=== PATIENT | female | born 1960 | race Caucasian/White ===

== ENCOUNTER → 2025-05-20 10:09 | Outpatient (REF) | payer OTHER, SELFPAY | LOC: HWWDC 10:09 | PROVIDERS: ATTENDING PHYSICIAN Family Medicine | DX: Z12.31 Encounter for screening mammogram for malignant neoplasm of breast (principal); Z78.0 Asymptomatic menopausal state; R52 Pain, unspecified; R06.02 Shortness of breath | CPT/HCPCS: 71046; 72040; 77063; 77067; 77080 ==